=== PATIENT | female | born 1995 | race Caucasian/White ===

== ENCOUNTER 2025-02-25 21:29 | Emergency (ER) | payer SELFPAY ==
[~2025-02-25] VITALS: Ht 165.1 cm; Wt 98.0 kg
[2025-02-25 21:42] VITALS: BP 117/85; PULSE 89; RESP 16; TEMP 98.5; O2SAT 99
== END 2025-02-25 23:36 | disposition home or self-care (01) ==
LOC: ER 21:29
DX: F10.129 Alcohol abuse with intoxication, unspecified (principal); Y90.9 Presence of alcohol in blood, level not specified
CPT/HCPCS: 99283